=== PATIENT | male | born 1995 | race Caucasian/White ===

== ENCOUNTER 2017-07-01 13:32 | Emergency (ER) | payer BC ==
[~2017-07-01] VITALS: Ht 182.9 cm; Wt 79.0 kg
[2017-07-01 13:39] VITALS: TEMP 36.7; Ht 182.9 cm; Wt 79.0 kg
[2017-07-01] MEDS ORDERED: ONDANSETRON INJ 2 MG/ML 2 ML VIAL IV STA (13:47)
[2017-07-01] MEDS ORDERED: SODIUM CHLORIDE 0.9% 1000ML 1,000 ML IV STA (13:47)
[2017-07-01] MEDS ORDERED: FAMOTIDINE 20MG/5ML IV PUSH IV STA (13:47)
--- NOTE | 2017-07-01 13:55 | EMERGENCY ROOM VISIT NOTE ---
History Report prepared by Des: Laith Pascual Under the Supervision of: Dr. Harjinder Mireles M.D. First contact with patient: 13:40 Chief Complaint: GI ASSESSMENT Stated Complaint: VOMITING BLOOD Nursing Triage Summary: triage note: Pt reports "i have been vomitting all morning...blood." History of Present Illness The patient is a 21 year old male who presents to the Emergency Room with complaints of intermittent blood in his vomit beginning this morning. The patient states he woke up this morning and vomited gross amounts of blood. He reports he continued to vomit and the amount of blood decreased. The patient notes he would drink a whole bottle of water and then vomit it up with blood at the end of the episode. He states he did consume a few beers last night with his friends. The patient reports he had one episode of abdominal pain. He denies any other symptoms. Source of History: patient Onset: this morning Position: other (global) Quality: other (vomiting blood) Timing: intermittent Associated Symptoms: + abdominal pain Note: Denies any other symptoms Review of Systems See HPI for pertinent positives & negatives. A total of 10 systems reviewed and were otherwise negative. Past Medical & Surgical Medical Problems: (1) No Known Active Medical Problems Family History Patient reports no known family medical history. Social History Smoking Status: Never Smoker Alcohol Use: occasionally Marital Status: single Housing Status: lives with roommate Occupation Status: [employer] student Current/Historical Medications Scheduled Ondasetron Odt (Zofran Odt), 4 MG SL Q6H Pantoprazole Sodium (Protonix), 1 TAB PO DAILY Scheduled PRN Hydroxyzine Hcl (Atarax), Unknown Dose PO Q6H PRN for Itching Allergies Coded Allergies: No Known Allergies (Unverified , 07/01/17) Physical Exam Vital Signs Date Time Temp Pulse Resp B/P (MAP) Pulse Ox O2 Delivery O2 Flow Rate FiO2 07/01/17 18:09 70 16 105/48 99 07/01/17 16:49 70 16 117/67 98 Room Air 07/01/17 15:17 71 14 138/63 99 Room Air 07/01/17 14:38 63 07/01/17 13:39 36.7 75 18 119/78 95 Room Air Physical Exam GENERAL: Patient is a healthy-appearing well-nourished 21 year old female. HEAD: Normocephalic atraumatic EYES: Ocular movements intact pupils equal and react to light OROPHARYNX mucous membranes are moist no exudates present no erythema or edema present NECK: Supple no nuchal rigidity CHEST: Good equal expansion LUNGS: Clear and equal to auscultation CARDIAC: Normal S1 and S2 ABDOMEN: Soft nontender no guarding BACK: No CVA tenderness EXTREMITIES: No pain upon palpation normal muscle strength in all groups no clubbing cyanosis or edema NEURO: Patient is following commands and answering questions appropriately. Alert and oriented x3 Cranial Nerves 2-12 grossly intact Medical Decision & Procedures ER Provider Diagnostic Interpretation: Radiology results as stated below per my review and radiologist interpretation: CHEST AND ABDOMEN 2 VIEWS HISTORY: Pt c/o hematemesis COMPARISON: None. FINDINGS: The lungs are clear. The cardiomediastinal silhouette is within normal limits. There is no pneumoperitoneum or pneumatosis. The bowel gas pattern is unremarkable. No evidence for bowel obstruction. No pathologic calcifications. IMPRESSION: No acute cardiopulmonary process. No evidence for bowel obstruction. Electronically signed by: Josh Anderson M.D. 07/01/2017 3:19 PM Dictated Date/Time: 07/01/2017 3:17 PM CHEST CTA for PULMONARY ARTERIES CT DOSE: 365.45 mGy.cm HISTORY: Epigastric pain. Vomiting blood. TECHNIQUE: Multiaxial CT images of the chest were performed following the intravenous administration of contrast to evaluate the pulmonary arteries. Maximal intensity projection images were also obtained. A dose lowering technique was utilized adhering to the principles of ALARA. COMPARISON STUDY: None. FINDINGS: There is a normal caliber thoracic aorta with no evidence for dissection. There is no evidence for pulmonary embolus. No pleural effusions. No pneumothorax. The liver and spleen are unremarkable. No mediastinal or hilar lymphadenopathy. The central airways are patent. There is a 3 mm subpleural nodule within the left lower lobe on image 24. This is of doubtful clinical significance given the patient's age. Otherwise, the lungs are clear. IMPRESSION: No evidence for pulmonary embolus. Electronically signed by: Josh Anderson M.D. 07/01/2017 5:25 PM Dictated Date/Time: 07/01/2017 5:17 PM Laboratory Results 07/01/17 14:24 Red Blood Count 4.67, Mean Corpuscular Volume 87.4, Mean Corpuscular Hemoglobin 30.4, Mean Corpuscular Hemoglobin Concent 34.8, Mean Platelet Volume 10.4, Neutrophils (%) (Auto) 85.8, Lymphocytes (%) (Auto) 8.6, Monocytes (%) (Auto) 4.7, Eosinophils (%) (Auto) 0.4, Basophils (%) (Auto) 0.1, Neutrophils # (Auto) 11.77, Lymphocytes # (Auto) 1.18, Monocytes # (Auto) 0.64, Eosinophils # (Auto) 0.05, Basophils # (Auto) 0.01 07/01/17 14:24 Test 07/01/17 14:24 07/01/17 17:30 White Blood Count 13.70 K/uL (4.8-10.8) Red Blood Count 4.67 M/uL (4.7-6.1) Hemoglobin 14.2 g/dL (14.0-18.0) Hematocrit 40.8 % (42-52) Mean Corpuscular Volume 87.4 fL (80-100) Mean Corpuscular Hemoglobin 30.4 pg (25-34) Mean Corpuscular Hemoglobin Concent 34.8 g/dl (32-36) Platelet Count 160 K/uL (130-400) Mean Platelet Volume 10.4 fL (7.4-10.4) Neutrophils (%) (Auto) 85.8 % Lymphocytes (%) (Auto) 8.6 % Monocytes (%) (Auto) 4.7 % Eosinophils (%) (Auto) 0.4 % Basophils (%) (Auto) 0.1 % Neutrophils # (Auto) 11.77 K/uL (1.4-6.5) Lymphocytes # (Auto) 1.18 K/uL (1.2-3.4) Monocytes # (Auto) 0.64 K/uL (0.11-0.59) Eosinophils # (Auto) 0.05 K/uL (0-0.5) Basophils # (Auto) 0.01 K/uL (0-0.2) RDW Standard Deviation 40.6 fL (36.4-46.3) RDW Coefficient of Variation 12.7 % (11.5-14.5) Immature Granulocyte % (Auto) 0.4 % Immature Granulocyte # (Auto) 0.05 K/uL (0.00-0.02) Anion Gap 6.0 mmol/L (3-11) Est Creatinine Clear Calc Drug Dose 112.5 ml/min Estimated GFR () 105.6 Estimated GFR (Non- 91.1 BUN/Creatinine Ratio 21.5 (10-20) Calcium Level 9.1 mg/dl (8.5-10.1) Total Bilirubin 0.5 mg/dl (0.2-1) Direct Bilirubin 0.1 mg/dl (0-0.2) Aspartate Amino Transf (AST/SGOT) 17 U/L (15-37) Alanine Aminotransferase (ALT/SGPT) 20 U/L (12-78) Alkaline Phosphatase 93 U/L (45-117) Total Creatine Kinase 164 U/L (39-308) Creatine Kinase MB 0.9 ng/ml (0.5-3.6) Creatine Kinase MB Ratio 0.5 (0-3.0) Troponin I < 0.015 ng/ml (0-0.045) Total Protein 7.6 gm/dl (6.4-8.2) Albumin 4.6 gm/dl (3.4-5.0) Lipase 78 U/L (73-393) Urine Color YELLOW Urine Appearance CLEAR (CLEAR) Urine pH 5.0 (4.5-7.5) Urine Specific [place] 1.043 (1.000-1.030) Urine Protein NEG (NEG) Urine Glucose (UA) NEG (NEG) Urine Ketones 1+ (NEG) Urine Occult Blood NEG (NEG) Urine Nitrite NEG (NEG) Urine Bilirubin NEG (NEG) Urine Urobilinogen NEG (NEG) Urine Leukocyte Esterase NEG (NEG) Labs reviewed by ED physician. Medications Administered Medications (Trade) Dose Ordered Sig/Keshawn Route Start Time Stop Time Status Last Admin Dose Admin Sodium Chloride 1,000 ml @ 999 mls/hr Q1H1M STAT IV 07/01/17 13:47 07/01/17 14:47 DC 07/01/17 13:47 999 MLS/HR Ondansetron HCl (Zofran Inj) 4 mg NOW STAT IV 07/01/17 13:47 07/01/17 13:49 DC 07/01/17 14:26 4 MG Famotidine (Pepcid 20mg Iv Push) 20 mg ONE STAT IV 07/01/17 13:47 07/01/17 13:49 DC 07/01/17 14:26 20 MG Ondansetron HCl (ZOFRAN ODT 4MG Home Pack) 1 homepack UD STAT PO 07/01/17 17:33 07/01/17 17:34 DC 07/01/17 17:58 1 HOMEPACK ECG Indication: chest pain Rate (beats per minute): 64 Rhythm: normal sinus Findings: no acute ischemic change, no ectopy ED Course 1343: Past medical records reviewed. The patient was evaluated in room A10. A complete history and physical examination was performed. 1347: Ordered Famotidine 20mg IV, Ondansetron HCl 4mg IV, Sodium Chloride 1000 ml @ 999 mls/hr IV 1522: I reevaluated the patient and discussed current exam findings. He is now complaining of chest pain. 1729: Upon reexamination the patient is resting and feeling better. I discussed results and treatment plan with the patient and his mother. They verbalize agreement and understanding. The patient is ready for discharge when he receives his medication. 1733: Ordered Ondansetron HCl 1 homepack PO Medical Decision Differential diagnosis: Etiologies such as diverticulosis, AVM, coagulopathy, colitis, inflammatory bowel disease, malignancy, [place] tear, esophagitis, peptic ulcer disease , variceal bleed, gastritis, epistaxis, fissure, hemorrhoids, as well as others were entertained. This is a 21-year-old male who presents emergency department complaining of vomiting blood. I will note that the patient has a stable hemoglobin here in the emergency department 14.5. He was given Zofran as well as Pepcid IV. Repeat examination revealed the patient to be having chest pain. For this reason an EKG was obtained which found to be normal sinus rhythm. The patient has normal CK-MB troponin function. He was sent for CAT scan of the chest for better imaging. This was also normal. I do believe that the patient can be safely discharged home however I recommended a clear liquid diet for the next 48 hours ago placed the patient on Pepcid as well as Zofran. He was to return if he develops severe hematemesis. Patient and family were in agreement with treatment plan. Impression Primary Impression: Gastritis Scribe Attestation The scribe's documentation has been prepared under my direction and personally reviewed by me in its entirety. I confirm that the note above accurately reflects all work, treatment, procedures, and medical decision making performed by me. Departure Information Dispostion Home / Self-Care Prescriptions Pantoprazole Sodium (PROTONIX) 40 Mg Tab 1 TAB PO DAILY for 30 Days, #30 TAB Prov: Harjinder Mireles MD 07/01/17 Ondasetron Odt (ZOFRAN ODT) 4 Mg Tab 4 MG SL Q6H for Nausea, #6 TAB Prov: Harjinder Mireles MD 07/01/17 Referrals Saeid Sanon M.D. Forms HOME CARE DOCUMENTATION FORM, IMPORTANT VISIT INFORMATION, School Instructions, Work Instructions Patient Instructions Diet Clear Liquid Dc, Gastritis, Gastritis Tx, My [facility] Additional Instructions Clear liquid diet next 48 hours Take 5 ml Maalox before every meal and at bedtime Follow up with DR Sanon's office You have been examined and treated today on an emergency basis only. This is not a substitute for, or an effort to provide, complete comprehensive medical care. It is impossible to recognize and treat all injuries or illnesses in a single emergency department visit. It is therefore important that you follow up closely with your PCP. Call as soon as possible for an appointment. Thank you for your time and consideration. I look forward to speaking with you again soon. Please don't hesitate to call us if you have any questions. Problem Qualifiers Primary Impression: Gastritis Gastritis type: unspecified gastritis Chronicity: unspecified Gastritis bleeding: with bleeding Qualified Codes: K29.71 - Gastritis, unspecified, with bleeding
[2017-07-01] MEDS ORDERED: HYDR-3124 PO (14:22)
[2017-07-01 14:35] LABS: BASO % 0.1 %; BASO ABS # 0.01 K/uL (0-0.2); COMPLETE YES; EOS % 0.4 %; HEMATOCRIT 40.8 % (42-52); IG% 0.4 %; LYMPH % 8.6 %; LYMPH ABS # 1.18 K/uL (1.2-3.4); MEAN CELL VOLUME 87.4 fL (80-100); MEAN CORPUSCULAR HEMOGLOBIN 30.4 pg (25-34); MEAN CORPUSCULAR HGB CONC 34.8 g/dl (32-36); MEAN PLATELET VOLUME 10.4 fL (7.4-10.4); MONO % 4.7 %; NEUT % 85.8 %; PLATELET COUNT 160 K/uL (130-400); RED BLOOD COUNT 4.67 M/uL (4.7-6.1)
[2017-07-01 14:55] LABS: BUN/CREATININE RATIO 21.5 (10-20); CALCIUM 9.1 mg/dl (8.5-10.1); CREATININE 1.15 mg/dl (0.60-1.40); POTASSIUM 3.9 mmol/L (3.5-5.1)
--- NOTE | 2017-07-01 15:20 | DIAGNOSTIC IMAGING REPORT ---
CHEST AND ABDOMEN 2 VIEWS HISTORY: Pt c/o hematemesis COMPARISON: None. FINDINGS: The lungs are clear. The cardiomediastinal silhouette is within normal limits. There is no pneumoperitoneum or pneumatosis. The bowel gas pattern is unremarkable. No evidence for bowel obstruction. No pathologic calcifications. IMPRESSION: No acute cardiopulmonary process. No evidence for bowel obstruction. Electronically signed by: Josh Anderson M.D. 07/01/2017 3:19 PM Dictated Date/Time: 07/01/2017 3:17 PM
[2017-07-01] MEDS ORDERED: OPTIRAY 320 IV PRN (16:15)
[2017-07-01 17:00] LABS: CKMB/CK RATIO 0.5 (0-3.0)
--- NOTE | 2017-07-01 17:26 | DIAGNOSTIC IMAGING REPORT ---
CHEST CTA for PULMONARY ARTERIES CT DOSE: 365.45 mGy.cm HISTORY: Epigastric pain. Vomiting blood. TECHNIQUE: Multiaxial CT images of the chest were performed following the intravenous administration of contrast to evaluate the pulmonary arteries. Maximal intensity projection images were also obtained. A dose lowering technique was utilized adhering to the principles of ALARA. COMPARISON STUDY: None. FINDINGS: There is a normal caliber thoracic aorta with no evidence for dissection. There is no evidence for pulmonary embolus. No pleural effusions. No pneumothorax. The liver and spleen are unremarkable. No mediastinal or hilar lymphadenopathy. The central airways are patent. There is a 3 mm subpleural nodule within the left lower lobe on image 24. This is of doubtful clinical significance given the patient's age. Otherwise, the lungs are clear. IMPRESSION: No evidence for pulmonary embolus. Electronically signed by: Josh Anderson M.D. 07/01/2017 5:25 PM Dictated Date/Time: 07/01/2017 5:17 PM
[2017-07-01] MEDS ORDERED: ONDANSETRON HOME PACK 4MG OD TAB PO STA (17:33)
[2017-07-01] MEDS ORDERED: PANT40TA PO (17:34)
[2017-07-01] MEDS ORDERED: ONDA4TAB10 SL (17:34)
[2017-07-01 17:43] LABS: URINE APPEARANCE CLEAR (CLEAR); URINE BILIRUBIN NEG (NEG); URINE COLOR YELLOW; URINE NITRITE NEG (NEG); URINE SPECIFIC GRAVITY 1.043 (1.000-1.030); UROBILINOGEN NEG (NEG)
[2017-07-01 17:48] LABS: MANUAL MICROSCOPIC REQUIRED? NO; REVIEW REQ? NO
[2017-07-01 18:09] VITALS: BP 105/48; PULSE 70; O2SAT 99
== END 2017-07-01 18:12 | disposition home or self-care (01) ==
LOC: C.EDB 13:34 → C.EDA 18:12
DX: K29.71 Gastritis, unspecified, with bleeding (principal); F10.99 Alcohol use, unspecified with unspecified alcohol-induced disorder